=== PATIENT | male | born 1995 | race Caucasian/White ===

== ENCOUNTER 2020-02-22 01:45 | Inpatient (IN) | payer OTHER ==
[~2020-02-22] VITALS: Ht 167.6 cm; Wt 59.0 kg
[2020-02-22 01:50] VITALS: Ht 167.6 cm; Wt 59.0 kg
[2020-02-22 02:22] LABS: PLATELET COUNT 218 x10^3mcL (130-400); RED CELL DISTRIBUTION WIDTH 13.3 % (11.5-14.5)
[2020-02-22 02:32] LABS: CALCIUM 9.4 mg/dL (8.5-10.1); CARBON DIOXIDE 28.7 mmol/L (21-32); CHLORIDE SERUM 100 mmol/L (98-107); CREATININE SERUM 0.9 mg/dL (0.7-1.3); GFR1 > 60 mL/min; GLUCOSE SERUM 109 mg/dL (74-106); POTASSIUM SERUM 3.5 mmol/L (3.5-5.1); SODIUM SERUM 140 mmol/L (136-145)
[2020-02-22 02:36] LABS: ALBUMIN 4.2 g/dL (3.4-5.0); ALKALINE PHOSPHATASE 114 U/L (46-116); ALT/SGPT 63 U/L (16-63); AST/SGOT 35 U/L (15-37); BILIRUBIN TOTAL 0.4 mg/dL (0.20-1.00); CHOLESTEROL 161 mg/dL (<200); HDL CHOLESTEROL 47 mg/dL (40-60); PHOSPHOROUS 3.1 mg/dL (2.5-4.9); TOTAL PROTEIN, SERUM 7.4 g/dL (6.4-8.2); URIC ACID 6.5 mg/dL (3.5-7.2)
[2020-02-22 02:40] LABS: BAND NEUTROPHIL 2 % (0-10); BASOPHIL 0 % (0-2); MONOCYTE 21 % (0-7); SEGMENTED NEUTROPHILS 53 % (37-75)
[2020-02-22 02:42] LABS: rbc morphology (normal/abnorm) NORMAL (NORMAL)
[2020-02-22 06:42] VITALS: BP 107/63
[2020-02-22 07:37] VITALS: BP 110/68
[2020-02-22 10:57] LABS: AMPHETAMINE QUAL UR NONE DETECTED (See below)
[2020-02-22 11:28] VITALS: BP 107/71
[2020-02-22 11:43] VITALS: BP 107/71
== END 2020-02-22 12:12 | disposition short-term general hospital (02) | DRG 190 ==
LOC: ED 01:45 → DU 03:55
PROVIDERS: Emergency Medicine; ADMIT Internal Medicine Pulmonary Disease
DX: I21.3 ST elevation (STEMI) myocardial infarction of unspecified site (principal)
CPT/HCPCS: G0378; J1644; J1650; J1885; Q0092